=== PATIENT | female | born 1990 | race Two or more races ===

== ENCOUNTER → 2017-07-30 | Outpatient (CLI) | payer OTHER ==
[2016-05-28 00:23] VITALS: BP 100/46
[~2017-07-30] MED LIST: ONDA4TAB10 PO
--- NOTE | 2017-07-30 11:00 | RAD ---
3 views lumbar spine 07/30/2017 2:00 AM Indication: LOW BACK PAIN Comparison study: None available Findings: No evidence of acute fracture or alignment abnormality is identified. Vertebral body heights are maintained. No evidence of spondylolysis or spondylolisthesis is seen. No acute soft tissue changes are identified. Impression: No radiographic evidence of acute osseous abnormality involving the lumbar spine
== END | disposition home or self-care (01) ==
LOC: PMG 10:25
PROVIDERS: ATTEND Family Medicine
DX: M54.5 Low back pain (principal); F17.200 Nicotine dependence, unspecified, uncomplicated
CPT/HCPCS: 72100

== ENCOUNTER → 2018-04-18 | Outpatient (CLI) | payer OTHER ==
[2016-05-28 00:23] VITALS: BP 100/46
[2018-04-18 18:33] LABS: BASO % 0 % (0-3); EOS # 0.3 x10^3/uL (0.0-0.7); EOS % 4 % (0-3); HEMATOCRIT 38.7 % (36.0-47.0); HEMOGLOBIN 12.8 g/dL (12.0-15.5); LYMPH # 2.4 x10^3/uL (1.0-4.8); LYMPH % 36 % (24-48); MEAN CORPUSCULAR HEMOGLOBIN 27 pg (25-35); MEAN CORPUSCULAR HGB CONC 33 g/dL (31-37); MEAN CORPUSCULAR VOLUME 80 fL (79-100); MONO # 0.4 x10^3/uL (0.0-1.1); MONO % 5 % (0-9); NEUT # 3.5 x10^3uL (1.8-7.7); NEUT % 54 % (31-73); PLATELET COUNT 213 x10^3/uL (140-400); RED BLOOD COUNT 4.83 x10^6/uL (3.50-5.40); WHITE BLOOD COUNT 6.6 x10^3/uL (4.0-11.0)
[2018-04-18 18:41] LABS: ALBUMIN 3.7 g/dL (3.4-5.0); ALBUMIN/GLOBULIN RATIO 0.9 (1.0-1.7); CALCIUM 8.9 mg/dL (8.5-10.1); CREATININE 0.8 mg/dL (0.6-1.0); GFR 86.7; POTASSIUM 4.3 mmol/L (3.5-5.1); TOTAL BILIRUBIN 0.2 mg/dL (0.2-1.0); TOTAL PROTEIN 7.7 g/dL (6.4-8.2)
== END | disposition home or self-care (01) ==
LOC: SPEC 17:12
PROVIDERS: ATTEND Family Medicine
DX: L40.9 Psoriasis, unspecified (principal)
CPT/HCPCS: 36415; 80053; 85025

== ENCOUNTER 2020-05-04 13:55 | Emergency (ER) | payer MEDICAID, OTHER ==
[~2020-05-04] VITALS: Ht 165.1 cm; Wt 109.0 kg
[2020-05-04] MEDS ORDERED: LIDOCAINE 1%/EPI 1:100,000 20 ML VIAL. IJ ONE (15:15)
--- NOTE | 2020-05-04 15:30 | PHYS DOC ---
Past History Past Medical History: Other Additional Past Medical Histor: DISLOCATED HOP; PILONIDAL CYST Past Surgical History: Alcohol Use: None Drug Use: None General Adult EDM: Chief Complaint: SKIN PROBLEM HPI: HPI: Patient is a 30-year-old female who presents with buttock pain. Patient has had multiple pilonidal abscessES during her and over last couple days has noticed increased pain that is throbbing in nature worse with palpation. Pain is nonradiating and severe in intensity. Patient denies any complaints. Patient has any abdominal pain or vaginal bleeding. Review of Systems: Review of Systems: Constitutional: Denies fever or chills Eyes: Denies change in visual acuity HENT: Denies nasal congestion or sore throat Respiratory: Denies cough or shortness of breath Cardiovascular: Denies chest pain or edema GI: Denies abdominal pain, nausea, vomiting, bloody stools or diarrhea : Denies dysuria Musculoskeletal: Denies back pain or joint pain Integument: Complains of boil to her pilonidal area Neurologic: Denies headache, focal weakness or sensory changes Endocrine: Denies polyuria or polydipsia Lymphatic: Denies swollen glands Psychiatric: Denies depression or anxiety Current Medications: Current Meds: Current Medications Medications (Trade) Dose Ordered Sig/[place] Start Time Stop Time Status Last Admin Dose Admin Lidocaine/ Epinephrine (Xylocaine 1%-Epi 1:100,000) 20 ml 1X ONCE 05/04/20 15:15 05/04/20 15:16 DC 05/04/20 15:15 20 ML Allergies: Allergies: Allergies Coded Allergies Type Severity Reaction Last Updated Verified sulfamethoxazole Adverse Reaction Intermediate N/V 05/04/20 No trimethoprim Adverse Reaction Intermediate N/V 05/04/20 No Physical Exam: PE: Constitutional: Well developed, well nourished, no acute distress, non-toxic appearance. [] HENT: Normocephalic, atraumatic, bilateral external ears normal, no trismus, nose normal. [] Eyes: PERRLA, EOMI, conjunctiva normal, no discharge. [] Neck: Normal range of motion, no tenderness, supple, no stridor. [] Cardiovascular:Heart rate regular rhythm, peripheral pulses are intact cap refill brisk Lungs & Thorax: Bilateral breath sounds clear, no respiratory distress Abdomen: Gravid uterus, nontender Skin: Tender, fluctuant, area of the pilonidal area Back: Tender pilonidal abscess Extremities: No tenderness, no cyanosis, no clubbing, ROM intact, no edema. [] Neurologic: Alert and oriented X 3, normal motor function, normal sensory function, no focal deficits noted. [] Psychologic: Affect normal, judgement normal, mood normal. [] Current Patient Data: Vital Signs: Vital Signs Date Time Temp Pulse Resp B/P (MAP) Pulse Ox O2 Delivery O2 Flow Rate FiO2 05/04/20 14:04 98.3 101 18 128/77 (94) 98 Room Air EKG: EKG: [] Radiology/Procedures: Radiology/Procedures: [] After verbal informed consent was obtained from the patient pilonidal abscess was drained. Clinical indication pilonidal abscess Procedure: I&D of pilonidal abscess Medical Accountant present, skin was prepped with iodine. The skin was anesthetized with 1% lidocaine. Good anesthesia was obtained. 11 blade was used to make an incision. Large amount of pus was expressed. The wound was probed to break up loculations. The wound was then irrigated copiously normal saline. The wound was then packed with gauze. Patient tolerated well. Heart Score: Risk Factors: Risk Factors: DM, Current or recent (<one month) smoker, HTN, HLP, family history of CAD, obesity. Risk Scores: Score 0 - 3: 2.5% MACE over next 6 weeks - Discharge Home Score 4 - 6: 20.3% MACE over next 6 weeks - Admit for Clinical Observation Score 7 - 10: 72.7% MACE over next 6 weeks - Early Invasive Strategies Course & Med Decision Making: Course & Med Decision Making Pertinent Labs and Imaging studies reviewed. (See chart for details) [] Dragon Disclaimer: Dragon Disclaimer: This electronic medical record was generated, in whole or in part, using a voice recognition dictation system. Departure Departure: Impression: Primary Impression: Pilonidal abscess Disposition: 01 DC HOME SELF CARE/HOMELESS Condition: STABLE Referrals: PCP,NO (PCP) Follow-up here in 2 days for packing removal and wound recheck Patient Instructions: Pilonidal Cyst Additional Instructions: EMERGENCY DEPARTMENT GENERAL DISCHARGE INSTRUCTIONS THANK YOU for coming to [facility] (ED) today and trusting us with your care. We trust that you had a positive experience in our Emergency Department. If you wish to speak to the department Management you can contact the emergency department at YOUR FOLLOW UP INSTRUCTIONS ARE FOLLOWS: Do you have a private doctor? If you do not have a private doctor, please ask for a resource list of physicians or clinics that may be able to assist you with follow up care. The Emergency Physician has interpreted your x-rays. The X-ray specialist will also review them. If there is a change in the findings you will be notified in 48 hours when at all possible. A lab test or lab culture may have been done, your results will be reviewed and you will be notified if you need a change in treatment. ADDITIONAL INSTRUCTIONS AND INFORMATION Your care today has been supervised by a physician who is specially trained in emergency care. Many problems require more than one evaluation for a complete diagnosis and treatment. We recommend that you schedule your follow up appointment as recommended to ensure complete treatment of your illness or injury. If you are unable to obtain follow up care and continue to have a problem, or if your condition worsens we recommend that you return to the ED. We are not able to safely determine your condition over the phone nor are we able to give sound medical advice over the phone. For these safety reasons, if you call for medical advice we will ask you to come to the ED for further evaluation If you have any questions regarding these discharge instructions please call the ED at . SAFETY INFORMATION In the interest of safety, wellness, and injury prevention; we encourage you to wear your seatbelt, if you smoke; quit smoking, and we encourage your family to use protective helmet for bicycling and other sporting events that present an increased risk for head injury. IF YOUR SYMPTOMS WORSEN OR NEW SYMPTOMS DEVELOP, OR YOU HAVE CONCERNS ABOUT YOUR CONDITION; OR IF YOUR CONDITION WORSENS WHILE YOU ARE WAITING FOR YOUR FOLLOW UP APPOINTMENT; EITHER CONTACT YOUR PRIMARY CARE DOCTOR, THE PHYSICIAN WHOSE NAME AND NUMBER YOU WERE GIVEN, OR RETURN TO THE ED IMMEDIATELY. Scripts Clindamycin Hcl (CLINDAMYCIN HCL) 300 Mg Capsule 1 CAP PO QID for ABSCESS, #40 CAP Prov: TATI MYRICK MD 05/04/20 Oxycodone Hcl/Acetaminophen (PERCOCET 5-325 MG TABLET ) 1 Each Tablet 1 TAB PO PRN QID PRN for PAIN MDD 4 Tablet(s) for 2 Days, #10 TAB 0 Refills Prov: TATI MYRICK MD 05/04/20 TATI MYRICK MD May 04, 2020 15:30
[2020-05-04] MEDS ORDERED: CLIN300C8 PO (16:09)
[2020-05-04] MEDS ORDERED: OXYC1TAB15 PO (16:09)
[2020-05-04 16:15] VITALS: BP 136/77
== END 2020-05-04 16:24 | disposition home or self-care (01) ==
LOC: ER 13:55
DX: O26.893 Other specified pregnancy related conditions, third trimester (principal); L05.01 Pilonidal cyst with abscess; Z3A.34 34 weeks gestation of pregnancy; Z88.2 Allergy status to sulfonamides; Z88.1 Allergy status to other antibiotic agents
CPT/HCPCS: 10080; 99283

== ENCOUNTER 2020-05-07 15:06 | Emergency (ER) | payer MEDICAID ==
[~2020-05-07] VITALS: Ht 165.1 cm; Wt 109.0 kg
[~2020-05-07 15:06] MED LIST changes: +CLIN300C8 PO; +OXYC1TAB15 PO
[2020-05-07 15:15] VITALS: BP 145/77
[2020-05-07] MEDS ORDERED: METO10TA81 PO (15:37)
[2020-05-07] MEDS ORDERED: CEPH-264 PO (15:37)
--- NOTE | 2020-05-07 15:37 | PHYS DOC ---
Past History Past Medical History: Other Additional Past Medical Histor: DISLOCATED HOP; PILONIDAL CYST Past Surgical History: Alcohol Use: None Drug Use: None General Adult EDM: Chief Complaint: WOUND CHECK HPI: HPI: History obtained from patient. Patient is a 30-year-old female estimated 34 weeks presents with chief complaint of wound evaluation. Patient states 4 days ago she had a pilonidal cyst drained at bedside. She states that she was discharged home with clindamycin. She states she tried taking clindamycin at home and began vomiting immediately. States the following day she presented back at our facility for repeat evaluation. She states she was discharged home with oral oxycodone. S She states he then decided to go to [facility] that same day for repeat evaluation because she was continued to have drainage from her wound. She states she was discharged home with Bactrim at that time. States she noted immediate vomiting with Bactrim as well. States her greatest concern is that she continues to have drainage from her pilonidal cyst drainage site. She notes her drainage is purulent and foul-smelling. She does have some discomfort with sitting. Denies any fevers. States she has had issues with vomiting related to her . She does not follow with a primary care physician. States that she has not been doing warm soaks in the bathtub given her late stage making it difficult to get in and out of the bathtub. She presents today for wound reevaluation. Review of Systems: Review of Systems: Constitutional: Denies fever or chills Eyes: Denies change in visual acuity HENT: Denies nasal congestion or sore throat Respiratory: Denies cough or shortness of breath Cardiovascular: Denies chest pain or edema GI: Denies abdominal pain, nausea, vomiting, bloody stools or diarrhea : Denies dysuria Musculoskeletal: Denies back pain or joint pain Integument: Positive for pilonidal cyst Neurologic: Denies headache, focal weakness or sensory changes Endocrine: Denies polyuria or polydipsia Lymphatic: Denies swollen glands Psychiatric: Denies depression or anxiety Allergies: Allergies: Allergies Coded Allergies Type Severity Reaction Last Updated Verified sulfamethoxazole Adverse Reaction Intermediate N/V 05/04/20 No trimethoprim Adverse Reaction Intermediate N/V 05/04/20 No Physical Exam: PE: Constitutional: Well developed, well nourished, no acute distress, non-toxic appearance. [] HENT: Normocephalic, atraumatic, bilateral external ears normal, oropharynx moist, no oral exudates, nose normal. [] Eyes: PERRLA, EOMI, conjunctiva normal, no discharge. [] Neck: Normal range of motion, no tenderness, supple, no stridor. [] Cardiovascular:Heart rate regular rhythm, no murmur [] Lungs & Thorax: Bilateral breath sounds clear to auscultation [] Abdomen: soft, no tenderness, no masses, no pulsatile masses. [] Skin: Warm, dry, no erythema, no rash. [] Back: 1 cm incision noted in the cephalad portion of the gluteal cleft. No surrounding induration or erythema appreciated. No purulent drainage expressed on palpation. No crepitus palpated. Wound packing was removed. Copious irrigation was administered. Clean packing was reinserted. Patient tolerated this well at bedside. Clinically wound appears to be well-healing. Extremities: No tenderness, no cyanosis, no clubbing, ROM intact, no edema. [] Neurologic: Alert and oriented X 3, normal motor function, normal sensory function, no focal deficits noted. [] Psychologic: Affect normal, judgement normal, mood normal. [] EKG: EKG: [] Radiology/Procedures: Radiology/Procedures: [] Heart Score: Risk Factors: Risk Factors: DM, Current or recent (<one month) smoker, HTN, HLP, family history of CAD, obesity. Risk Scores: Score 0 - 3: 2.5% MACE over next 6 weeks - Discharge Home Score 4 - 6: 20.3% MACE over next 6 weeks - Admit for Clinical Observation Score 7 - 10: 72.7% MACE over next 6 weeks - Early Invasive Strategies Course & Med Decision Making: Course & Med Decision Making Pertinent Labs and Imaging studies reviewed. (See chart for details) [] Patient is a 30-year-old female estimated 34 weeks who presents with complaint of pilonidal cyst wound evaluation. Initial vital signs unremarkable. Exam overall reassuring. No signs of persistent infection. Wound appears overall well healed. Copious irrigation was performed and clean packing was reinserted. Patient denies any abdominal pain or vaginal complaints to me. Further work-up will be deferred as she states her only concern is wound evaluation. Given she has not been tolerant to clindamycin and Bactrim oral Keflex will be prescribed. She will be discharged home with a course of Reglan. She was instructed to follow-up with her [facility] in 2 days for wound evaluation. She also given referral to her primary care physician. Return precautions discussed and understood. Stable for discharge home. Dragon Disclaimer: Dragon Disclaimer: This electronic medical record was generated, in whole or in part, using a voice recognition dictation system. Departure Departure: Impression: Primary Impression: Pilonidal cyst with abscess Disposition: HOME SELF CARE/HOMELESS Condition: STABLE Referrals: PCP,ERIC (PCP) EZIO BRANDT MD Patient Instructions: Abscess, Care After, Pilonidal Cyst Scripts Metoclopramide Hcl (REGLAN) 10 Mg Tablet 1 TAB PO TID PRN PRN for NAUSEA for 5 Days, TAB 0 Refills before food and bedtime Prov: MYRNA ZULETA DO 05/07/20 Cephalexin (KEFLEX) 500 Mg Capsule 500 MG PO QID for abscess for 5 Days, #20 TAB Prov: MYRNA ZULETA DO 05/07/20 MYRNA ZULETA DO May 07, 2020 15:37
== END 2020-05-07 15:59 | disposition home or self-care (01) ==
LOC: ER 15:06
DX: O21.9 Vomiting of pregnancy, unspecified (principal); L05.01 Pilonidal cyst with abscess; Z98.890 Other specified postprocedural states; Z3A.34 34 weeks gestation of pregnancy
CPT/HCPCS: 99283